=== PATIENT | male | born 1940 | race Hispanic/Latino ===

== ENCOUNTER 2020-07-17 14:53 | Emergency (ER) | payer MEDICARE ==
[~2020-07-17] VITALS: Ht 182.9 cm; Wt 90.7 kg
[2020-07-17 19:19] VITALS: BP 134/62
== END 2020-07-17 19:20 | disposition home or self-care (01) ==
LOC: ER 17:58
DX: L89.222 Pressure ulcer of left hip, stage 2 (principal); L89.212 Pressure ulcer of right hip, stage 2; I10 Essential (primary) hypertension; F03.90 Unspecified dementia, unspecified severity, without behavioral disturbance, psychotic disturbance, mood disturbance, and anxiety
CPT/HCPCS: 99282